=== PATIENT | female | born 1960 | race Caucasian/White ===

== ENCOUNTER 2016-03-12 23:28 | Emergency (ER) | payer BC, OTHER | END 2016-03-13 02:05 | disposition home or self-care (01) | LOC: D.ER 23:28 | DX: T36.0X5A Adverse effect of penicillins, initial encounter (principal); Y92.019 Unspecified place in single-family (private) house as the place of occurrence of the external cause; C34.90 Malignant neoplasm of unspecified part of unspecified bronchus or lung ==